=== PATIENT | female | born 2000 | race African-American/Black ===

== ENCOUNTER 2021-02-03 18:18 | Emergency (ER) | payer SELFPAY | END 2021-02-03 22:56 | disposition home or self-care (01) | LOC: ERS 18:18 | DX: E86.0 Dehydration (principal); E87.6 Hypokalemia; R11.2 Nausea with vomiting, unspecified; F17.210 Nicotine dependence, cigarettes, uncomplicated | CPT/HCPCS: 36415; 80048; 81003; 81015; 81025; 85025; 87086; 93005 ==

== ENCOUNTER 2021-04-18 16:16 | Emergency (ER) | payer SELFPAY ==
[2021-04-18] MEDS ORDERED: Ibuprofen 800 MG TAB ONE (19:25)
== END 2021-04-18 20:59 | disposition home or self-care (01) ==
LOC: ERS 16:16
DX: M54.2 Cervicalgia (principal); R68.84 Jaw pain; F17.210 Nicotine dependence, cigarettes, uncomplicated
CPT/HCPCS: 99283